=== PATIENT | female | born 1960 | race African-American/Black ===

== ENCOUNTER → 2016-10-23 | Emergency (ER) | payer MEDICARE ==
[~2016-10-23] VITALS: Ht 182.8 cm; Wt 113.4 kg
[~2016-10-23] MED LIST: 'CLONIDINE0.1 MG PO; ACETAMINOPHEN-O1 TAB PO; AMOXICILLIN500 MG PO; ANAPROX DS550 MG PO; ANTIVERT/2525 MG PO; ASPIRIN325 MG PO; ATENOLOL25 MG PO; AUGMENTIN 875 M1 TA1; AUGMENTIN 875 M1 TAB PO; BACTRIM DS 8001 TA1 PO; CARDIZEM CD240 MG PO; CARDIZEM120 MG; CARDIZEM120 MG PO; CATAFLAM50 MG PO; CATAPRES0.1 MG PO; CELEBREX100 MG PO; CIPROFLOXACIN500 MG PO; CLINDAMYCIN HC300 MG PO; CYCLOBENZAPRINE5 M3 PO; CYMBALTA20 MG PO; CYMBALTA30 MG PO; CYMBALTA60 MG; DARVOCET N 1001 TAB PO; DAYPRO600 M1 PO; DILTIAZEM; DILTIAZEM240 M1 PO; DOES NOT KNOW NAME; FIORICET 325 MG1 TAB PO; FLEXERIL10 MG PO; GABAPENTIN100 M1 PO; HYDROCODONE BIT1 T11 PO; IBUPROFEN; INHALER; KEFLEX500 MG PO; KLONOPIN0.5 MG PO; LEXAPRO20 MG PO; LEXAPRO5 M1 PO; LIDEX 0.05% CRE15 GM; LIDEX0.05% T; LISINOPRIL40 MG; LISINOPRIL40 MG PO; LOTRIMIN 1%15 GM PO; Lovenox40 MG/0.4 SC; MALOXICAM; MINIPRESS2 MG PO; MORPHINE4 MG IV; MOTRIN800 MG PO; MULTIVITAMIN FO1 CAP PO; Motrin,Rufen800 MG PO; NEURONTIN100 MG PO; NEURONTIN300 MG PO; NULYTELY PO; OXYGEN; PERCOCET; PERCOCET 325 MG1 TA2 PO; PERCOCET 325 MG1 TA5; PERCOCET 325 MG1 TA5 PO; PERCOCET 325 MG1 TA7 PO; PERCOCET 325 MG1 TAB PO; PREDNICOT20 MG PO; PRILOSEC20 MG PO; PROAIR HFA0.09 MG/AC INH; PROAIR HFA8.5 GM INH; Percocet 325 MG1 TAB PO; ROBAXIN750 MG PO; SEPTRA DS 800 M1 TAB PO; SIMVASTATIN; SIMVASTATIN40 MG PO; TORADOL10 MG PO; TRAMADOL HCL50 MG PO; TYLENOL EXTRA500 M1 PO; ULTRAM50 MG PO; VICODIN 5/500 505 MG PO; VICODIN 500 MG-1 TAB PO; VITAMIN C500 MG PO; VOLTAREN1% TP; VOLTAREN50 M1 PO; WALKER; XANAX0.5 MG PO; ZESTRIL40 MG PO; ZOCOR40 MG PO; ZOFRAN4 MG PO; ZOLOFT100 MG
[2016-10-23 08:56] LABS: BASO % 0.5 % (0.0-1.0); EOS # 0.1 10*3/uL (0.0-0.4); EOS % 1.8 % (1.0-4.0); HEMATOCRIT 43.1 % (37.0-47.0); HEMOGLOBIN 13.7 g/dl (12.0-16.0); LYMPH # 2.5 10*3/uL (1.3-4.4); LYMPH % 41.8 % (27.0-41.0); MEAN CELL VOLUME 93.1 fl (81.0-99.0); MEAN CORPUSCULAR HGB 29.6 pg (27.0-31.0); MEAN CORPUSCULAR HGB CONC 31.8 g/dl (33.0-37.0); MEAN PLATELET VOLUME 9.8 fl (9.6-12.3); MONO # 0.5 10*3/uL (0.1-1.0); MONO % 8.8 % (3.0-9.0); NEUT # 2.8 10*3/uL (2.3-7.9); NEUT % 46.9 % (47.0-73.0); PLATELET COUNT AUTOMATED 271 10*3/uL (130-400); RED BLOOD COUNT 4.63 10*6/uL (4.10-5.10); RED CELL DISTRI WIDTH 13.2 % (0-14.5)
[2016-10-23 09:05] LABS: PROTHROMBIN TIME 10.3 SECONDS (9.0-12.4)
[2016-10-23 09:12] LABS: ALBUMIN 3.8 gm/dl (3.1-4.5); ALKALINE PHOSPHATASE 103 U/L (45-117); BILIRUBIN, TOTAL 0.3 mg/dl (0.2-1.0); BUN 10 mg/dl (7-24); C-REACTIVE PROTEIN 0.39 MG/DL (0-0.3); CARBON DIOXIDE 27 mmol/L (21-32); CHLORIDE 110 mmol/L (98-107); CKMB 1.1 ng/ml (0.5-3.6); CPK 89 U/L (26-192); EST GLOM FILT AFRICAN AMERICAN > 60 ml/min; GLUCOSE 109 mg/dL (65-99); MAGNESIUM 2.2 mg/dL (1.5-2.1); POTASSIUM 4.1 mmol/L (3.5-5.1); SGOT/AST 12 IU/L (3-35); SGPT/ALT 20 U/L (12-78); SODIUM 143 mmol/L (136-145); TOTAL PROTEIN 7.6 gm/dL (6.4-8.2); TROPONIN I < 0.015 ng/ml (<0.045)
[2016-10-23 10:22] LABS: BILIRUBIN 1+ (NEGATIVE); BLOOD NEGATIVE (NEGATIVE); CLARITY SL CLOUDY (CLEAR); COLOR YELLOW (YELLOW); GLUCOSE NEGATIVE (NEGATIVE); KETONE NEGATIVE (NEGATIVE); LEUKO ESTERASE NEGATIVE (NEGATIVE); NITRITE NEGATIVE (NEGATIVE); PH 5.5 (5.0-9.0); PROTEIN 1+ (NEGATIVE); SPECIFIC GRAVITY >= 1.030 (1.005-1.030)
[2016-10-23 10:33] LABS: BACTERIA 1+; MUCOUS 3+; URINE REFLEX COMMENT NO (NO)
[2016-10-23 10:34] LABS: WBC 0-2 wbc/hpf (0-5)
[2016-10-23 12:25] VITALS: BP 126/71
== END ==
LOC: ED 08:29
PROVIDERS: Emergency Medicine
DX: G46.4 Cerebellar stroke syndrome (principal); F41.9 Anxiety disorder, unspecified; E78.5 Hyperlipidemia, unspecified; I10 Essential (primary) hypertension; Z88.6 Allergy status to analgesic agent; Z88.1 Allergy status to other antibiotic agents; Z88.8 Allergy status to other drugs, medicaments and biological substances; Z79.899 Other long term (current) drug therapy

== ENCOUNTER 2017-10-22 11:52 | Emergency (ER) | payer OTHER ==
[~2017-10-22] VITALS: Ht 187.9 cm; Wt 116.6 kg
[2017-10-22 11:52] VITALS: BP 115/69
[2017-10-22] MEDS ORDERED: Bactroban Oint22 GM T ×2 (12:14→12:17)
== END 2017-10-22 12:18 | disposition home or self-care (01) ==
LOC: ED 11:52
DX: L08.89 Other specified local infections of the skin and subcutaneous tissue (principal); E78.5 Hyperlipidemia, unspecified; F17.200 Nicotine dependence, unspecified, uncomplicated; E66.9 Obesity, unspecified; I10 Essential (primary) hypertension; G47.33 Obstructive sleep apnea (adult) (pediatric); Z98.51 Tubal ligation status; Z98.890 Other specified postprocedural states; Z79.899 Other long term (current) drug therapy; Z88.6 Allergy status to analgesic agent; Z88.1 Allergy status to other antibiotic agents; Z86.14 Personal history of Methicillin resistant Staphylococcus aureus infection

== ENCOUNTER 2017-12-04 07:55 | Emergency (ER) | payer OTHER ==
[~2017-12-04] VITALS: Wt 116.1 kg
[~2017-12-04 07:55] MED LIST changes: +Bactroban Oint22 GM T
[2017-12-04 08:00] VITALS: BP 116/77
[2017-12-04] MEDS ORDERED: DIFLUCAN150 MG PO (08:26)
[2017-12-04] MEDS ORDERED: VIBRAMYCIN100 MG PO (08:26)
[2018-01-05] MEDS ORDERED: DILTIAZEM ER240 M1 PO (13:34)
[2018-01-05] MEDS ORDERED: PROTONIX40 MG PO (13:35)
[2018-01-05] MEDS ORDERED: NEURONTIN300 MG PO (13:35)
[2018-01-05] MEDS ORDERED: ASPIRIN325 M2 PO (14:29)
[2018-01-05] MEDS ORDERED: BACLOFEN20 M1 PO (14:30)
[2018-01-05] MEDS ORDERED: SPIRIVA18 MCG PO (14:33)
[2018-01-08] MEDS ORDERED: OXYCODONE HCL5 MG PO (11:13)
[2018-01-08] MEDS ORDERED: MEPERIDINE IV (11:13)
[2018-01-08] MEDS ORDERED: OXYCONTIN10 M1 PO (11:13)
== END 2017-12-04 08:32 | disposition home or self-care (01) ==
LOC: ED 07:55
DX: Z20.2 Contact with and (suspected) exposure to infections with a predominantly sexual mode of transmission (principal); E78.5 Hyperlipidemia, unspecified; I10 Essential (primary) hypertension; Z88.6 Allergy status to analgesic agent; Z88.1 Allergy status to other antibiotic agents; Z88.8 Allergy status to other drugs, medicaments and biological substances; Z79.899 Other long term (current) drug therapy

== ENCOUNTER → 2018-01-28 | Outpatient (CLI) | payer OTHER ==
[~2018-01-28] MED LIST changes: +ASPIRIN325 M2 PO; +BACLOFEN20 M1 PO; +DIFLUCAN150 MG PO; +DILTIAZEM ER240 M1 PO; +MEPERIDINE IV; +OXYCODONE HCL5 MG PO; +OXYCONTIN10 M1 PO; +PERCOCET 10-321 EACH PO; +PERCOCET 5-3251 EACH PO; +PROTONIX40 MG PO; +SPIRIVA18 MCG PO; +VIBRAMYCIN100 MG PO
[2018-01-28 09:10] LABS: BASO # 0.1 10*3/uL (0.0-0.1); BASO % 0.8 % (0.0-1.0); EOS # 0.5 10*3/uL (0.0-0.4); EOS % 5.3 % (1.0-4.0); HEMATOCRIT 31.2 % (37.0-47.0); HEMOGLOBIN 9.3 g/dl (12.0-16.0); LYMPH # 3.4 10*3/uL (1.3-4.4); LYMPH % 33.2 % (27.0-41.0); MEAN CORPUSCULAR HGB 29.8 pg (27.0-31.0); MEAN CORPUSCULAR HGB CONC 29.8 g/dl (33.0-37.0); MEAN PLATELET VOLUME 9.7 fl (9.6-12.3); MONO # 1.2 10*3/uL (0.1-1.0); MONO % 11.4 % (3.0-9.0); NUCLEATED RED BLOOD CELL 0.1 10*3/uL (0.0-0.0); NUCLEATED RED BLOOD CELL 0.7 % (0.0-0.0); PLATELET COUNT AUTOMATED 582 10*3/uL (130-400); RED BLOOD COUNT 3.12 10*6/uL (4.10-5.10); RED CELL DISTRI WIDTH 16.4 % (0-14.5); WHITE BLOOD COUNT 10.2 10*3/uL (4.8-10.8)
[2018-01-28 09:28] LABS: ALBUMIN 3.5 gm/dl (3.1-4.5); BUN 15 mg/dl (7-24); CHLORIDE 107 mmol/L (98-107); POTASSIUM 3.7 mmol/L (3.5-5.1); SODIUM 144 mmol/L (136-145)
[2018-01-28 09:31] LABS: ALKALINE PHOSPHATASE 104 U/L (45-117); CREATININE 1.02 mg/dL (0.55-1.02); SGOT/AST 13 IU/L (3-35); SGPT/ALT 17 U/L (12-78); TOTAL PROTEIN 7.3 gm/dL (6.4-8.2)
== END | disposition home or self-care (01) ==
LOC: LAB 08:07
PROVIDERS: Physician Assistant
DX: C25.2 Malignant neoplasm of tail of pancreas (principal)

== ENCOUNTER 2018-02-11 04:38 | Emergency (ER) | payer OTHER ==
[~2018-02-11] VITALS: Ht 185.4 cm; Wt 105.2 kg
[~2018-02-11 04:38] MED LIST changes: -PERCOCET 10-321 EACH PO; -PERCOCET 5-3251 EACH PO
[2018-02-11 05:23] LABS: BASO % 0.6 % (0.0-1.0); EOS # 0.4 10*3/uL (0.0-0.4); EOS % 6.4 % (1.0-4.0); HEMATOCRIT 37.5 % (37.0-47.0); HEMOGLOBIN 11.5 g/dl (12.0-16.0); LYMPH # 2.1 10*3/uL (1.3-4.4); LYMPH % 31.2 % (27.0-41.0); MEAN CELL VOLUME 96.2 fl (81.0-99.0); MEAN CORPUSCULAR HGB 29.5 pg (27.0-31.0); MEAN CORPUSCULAR HGB CONC 30.7 g/dl (33.0-37.0); MEAN PLATELET VOLUME 9.7 fl (9.6-12.3); MONO % 14.1 % (3.0-9.0); NEUT # 3.2 10*3/uL (2.3-7.9); NEUT % 47.4 % (47.0-73.0); PLATELET COUNT AUTOMATED 472 10*3/uL (130-400); RED CELL DISTRI WIDTH 16.3 % (0-14.5); WHITE BLOOD COUNT 6.7 10*3/uL (4.8-10.8)
[2018-02-11 05:43] LABS: ALBUMIN 3.7 gm/dl (3.1-4.5); ALKALINE PHOSPHATASE 108 U/L (45-117); BUN 13 mg/dl (7-24); CHLORIDE 107 mmol/L (98-107); CREATININE 0.79 mg/dL (0.55-1.02); LIPASE 106 U/L (73-393); SGOT/AST 17 IU/L (3-35); SGPT/ALT 20 U/L (12-78); SODIUM 140 mmol/L (136-145)
[2018-02-11 06:25] VITALS: BP 122/74
[2018-02-11] MEDS ORDERED: PERCOCET 5-3251 EACH PO (06:27)
== END 2018-02-11 06:40 | disposition home or self-care (01) ==
LOC: ED 04:38
PROVIDERS: Student in an Organized Health Care Education/Training Program
DX: G89.3 Neoplasm related pain (acute) (chronic) (principal); R10.9 Unspecified abdominal pain; R11.0 Nausea; E78.5 Hyperlipidemia, unspecified; I10 Essential (primary) hypertension; I48.91 Unspecified atrial fibrillation; Z88.1 Allergy status to other antibiotic agents; Z88.6 Allergy status to analgesic agent; Z88.8 Allergy status to other drugs, medicaments and biological substances; Z79.899 Other long term (current) drug therapy

== ENCOUNTER 2018-02-19 09:49 | Emergency (ER) | payer OTHER ==
[~2018-02-19] VITALS: Ht 187.9 cm; Wt 105.2 kg
[~2018-02-19 09:49] MED LIST changes: +PERCOCET 5-3251 EACH PO
[2018-02-19 09:53] VITALS: BP 129/79
[2018-02-19] MEDS ORDERED: PERCOCET 10-321 EACH PO (10:26)
== END 2018-02-19 10:32 | disposition home or self-care (01) ==
LOC: ED 09:49
DX: R10.30 Lower abdominal pain, unspecified (principal); C25.9 Malignant neoplasm of pancreas, unspecified; I10 Essential (primary) hypertension; I48.91 Unspecified atrial fibrillation; E78.5 Hyperlipidemia, unspecified; Z88.6 Allergy status to analgesic agent; Z88.1 Allergy status to other antibiotic agents; Z88.8 Allergy status to other drugs, medicaments and biological substances; Z79.899 Other long term (current) drug therapy; Z79.82 Long term (current) use of aspirin

== ENCOUNTER 2018-02-26 03:04 | Emergency (ER) | payer OTHER ==
[~2018-02-26] VITALS: Ht 187.9 cm; Wt 104.3 kg
[~2018-02-26 03:04] MED LIST changes: +PERCOCET 10-321 EACH PO
[2018-02-26 04:03] LABS: BASO # 0.1 10*3/uL (0.0-0.1); BASO % 0.6 % (0.0-1.0); EOS # 0.3 10*3/uL (0.0-0.4); EOS % 3.2 % (1.0-4.0); HEMOGLOBIN 11.4 g/dl (12.0-16.0); LYMPH # 2.1 10*3/uL (1.3-4.4); LYMPH % 26.1 % (27.0-41.0); MEAN CORPUSCULAR HGB 29.8 pg (27.0-31.0); MEAN CORPUSCULAR HGB CONC 31.7 g/dl (33.0-37.0); MEAN PLATELET VOLUME 10.1 fl (9.6-12.3); MONO # 0.9 10*3/uL (0.1-1.0); MONO % 10.7 % (3.0-9.0); NEUT # 4.8 10*3/uL (2.3-7.9); NEUT % 59.2 % (47.0-73.0); PLATELET COUNT AUTOMATED 410 10*3/uL (130-400); RED BLOOD COUNT 3.83 10*6/uL (4.10-5.10); RED CELL DISTRI WIDTH 15.1 % (0-14.5); WHITE BLOOD COUNT 8.1 10*3/uL (4.8-10.8)
[2018-02-26 04:19] LABS: INTERNATIONAL NORM RATIO 0.9 (2.0-3.5)
[2018-02-26 04:26] LABS: BILIRUBIN NEGATIVE (NEGATIVE); BLOOD NEGATIVE (NEGATIVE); CLARITY CLEAR (CLEAR); COLOR YELLOW (YELLOW); GLUCOSE NEGATIVE (NEGATIVE); KETONE TRACE (NEGATIVE); LEUKO ESTERASE NEGATIVE (NEGATIVE); NITRITE NEGATIVE (NEGATIVE); SPECIFIC GRAVITY 1.025 (1.005-1.030); UROBILINOGEN 0.2 E.U./dl (0.2-1.0)
[2018-02-26 04:28] LABS: ALBUMIN 3.4 gm/dl (3.1-4.5); ALKALINE PHOSPHATASE 104 U/L (45-117); BUN 19 mg/dl (7-24); CHLORIDE 109 mmol/L (98-107); CREATININE 0.97 mg/dL (0.55-1.02); LIPASE 132 U/L (73-393); POTASSIUM 3.7 mmol/L (3.5-5.1); SGOT/AST 15 IU/L (3-35); SGPT/ALT 17 U/L (12-78); SODIUM 142 mmol/L (136-145); TOTAL PROTEIN 7.8 gm/dL (6.4-8.2)
[2018-02-26 04:37] LABS: BACTERIA TRACE; EPITHELIAL CELLS 25-30; WBC 0-2 wbc/hpf (0-5)
[2018-02-26] MEDS ORDERED: Percocet 325 MG1 TAB PO (05:41)
[2018-02-26 05:57] VITALS: BP 125/88
== END 2018-02-26 06:18 ==
LOC: ED 03:04
PROVIDERS: Emergency Medicine Emergency Medical Services
DX: R10.9 Unspecified abdominal pain (principal); C25.9 Malignant neoplasm of pancreas, unspecified; E78.5 Hyperlipidemia, unspecified; I10 Essential (primary) hypertension; Z88.1 Allergy status to other antibiotic agents; Z88.6 Allergy status to analgesic agent; Z88.8 Allergy status to other drugs, medicaments and biological substances; Z79.899 Other long term (current) drug therapy; Z79.82 Long term (current) use of aspirin

== ENCOUNTER 2018-03-17 09:40 | Emergency (ER) | payer OTHER ==
[~2018-03-17] VITALS: Wt 106.6 kg
[2018-03-17 09:41] VITALS: BP 129/77
== END 2018-03-17 10:40 | disposition home or self-care (01) ==
LOC: ED 09:40
DX: R51 Headache (principal); R11.0 Nausea; Z98.51 Tubal ligation status; Z79.82 Long term (current) use of aspirin; Z79.899 Other long term (current) drug therapy; Z88.8 Allergy status to other drugs, medicaments and biological substances; Z88.6 Allergy status to analgesic agent; Z88.1 Allergy status to other antibiotic agents

== ENCOUNTER 2018-04-05 05:00 | Emergency (ER) | payer OTHER ==
[~2018-04-05] VITALS: Wt 105.2 kg
[2018-04-05 05:01] VITALS: BP 144/87
== END 2018-04-05 06:01 | disposition home or self-care (01) ==
LOC: ED 05:00
DX: F41.9 Anxiety disorder, unspecified (principal); I48.91 Unspecified atrial fibrillation; E78.5 Hyperlipidemia, unspecified; I10 Essential (primary) hypertension; Z88.1 Allergy status to other antibiotic agents; Z88.6 Allergy status to analgesic agent; Z88.8 Allergy status to other drugs, medicaments and biological substances; Z79.899 Other long term (current) drug therapy; Z79.82 Long term (current) use of aspirin

== ENCOUNTER 2018-06-26 11:30 | Inpatient (IN) | payer OTHER ==
[~2018-06-26] VITALS: Ht 187.9 cm; Wt 107.1 kg
[2018-06-26] VITALS (14 sets, daily range): BP systolic 50–110; BP diastolic 0–79
--- NOTE | ~2018-06-26 | EKG ---
[place], [place] ELECTROCARDIOGRAM REPORT NAME: DEBRA KHALIL UNIT #: [id number] ROOM: [facility] DOCTOR: TIA DRAFT REPORT BIRTHDATE: [birth year] [facility] Test Date: 2018-06-26 Test Time: 12:15:45 Pat Name: DEBRA KHALIL Department: Room: [facility] Gender: F [employer]: : 1960 Requested By: RACHEL MURRAY Order Number: [id number] Reading MD: Barry Braden MD Measurements Intervals [place] Rate: 97 P: 78 AR: 144 QRS: 67 QRSD: 108 T: -14 QT: 376 QTc: 478 Interpretive Statements Sinus rhythm Anteroseptal infarct, age indeterminate Compared to ECG 01/05/2018 06:50:15 Myocardial infarct finding now present Right ventricular hypertrophy no longer present T-wave abnormality no longer present Electronically Signed On 06-28-2018 4:42:34 PST by Barry Braden MD CM:EKGRPT:ELECTROCARDIOGRAM REPORT [id number] RACHEL MURRAY EPIPHANY DRAFT REPORT RACHEL MURRAY
--- NOTE | ~2018-06-26 | O ---
[place], [place] OPERATIVE NOTE NAME: DEBRA KHALIL UNIT #: [id number] ROOM: [facility] DOCTOR: CINDI KIM DO BIRTHDATE: [birth year] DOS: 06/26/2018 PROCEDURE: Endotracheal intubation. PROCEDURE NOTE: This is a 58-year-old female currently admitted under the hospitalist service for treatment of sepsis and pneumonia. She developed worsening respiratory failure after admission to the ICU and it was decided to intubate the patient. Rapid sequence intubation was performed using succinylcholine and etomidate. A size 8.0 endotracheal tube was inserted into the trachea with direct visualization of the vocal cords. There was good color change on the CO2 detector. Breath sounds were equal bilaterally. A chest x-ray was ordered for tube placement. No complications during the procedure. CINDI KIM DO CM:OPRECORD:OPERATIVE NOTE [id number] CINDI KIM DO 06/27/18 0939 interface
[~2018-06-26 11:30] MED LIST changes: +DILTIAZEM 24HR360 MG PO; -DILTIAZEM ER240 M1 PO; -SIMVASTATIN40 MG PO; +ZOCOR20 MG PO
[2018-06-26 12:53] LABS: HEMATOCRIT 30.6 % (37.0-47.0); HEMOGLOBIN 9.3 g/dl (12.0-16.0); MEAN CELL VOLUME 104.1 fl (81.0-99.0); MEAN CORPUSCULAR HGB 31.6 pg (27.0-31.0); MEAN CORPUSCULAR HGB CONC 30.4 g/dl (33.0-37.0); NUCLEATED RED BLOOD CELL 0.4 10*3/uL (0.0-0.0); NUCLEATED RED BLOOD CELL 2.6 % (0.0-0.0); PLATELET COUNT AUTOMATED 379 10*3/uL (130-400); RED BLOOD COUNT 2.94 10*6/uL (4.10-5.10); RED CELL DISTRI WIDTH 27.1 % (0-14.5); WHITE BLOOD COUNT 13.2 10*3/uL (4.8-10.8)
--- NOTE | 2018-06-26 13:01 | NUR ---
LACTIC ACID 7.8 AN RACHEL NASH APRN NOTIFIED.
[2018-06-26 13:06] LABS: ALBUMIN 3.1 gm/dl (3.1-4.5); CREATININE 1.47 mg/dL (0.55-1.02); POTASSIUM 3.8 mmol/L (3.5-5.1); TOTAL PROTEIN 7.6 gm/dL (6.4-8.2)
[2018-06-26 13:15] LABS: TROPONIN I 0.096 ng/ml (<0.045)
--- NOTE | 2018-06-26 13:15 | NUR ---
TRIPONON 0.096 RACHEL NASH APRN NOTIFIED.
[2018-06-26 13:23] LABS: ACANTHOCYTES MANY; HOWELL-JOLLY BODIES MODERATE; PLATELET SUFFICIENCY NORMAL (NORMAL); TOTAL CELLS COUNTED 100 #CELLS
[2018-06-26 13:24] LABS: POLYCHROMASIA SLIGHT; SCHISTOCYTES MODERATE; TARGET CELLS MODERATE
[2018-06-26 13:25] LABS: SPHEROCYTES FEW
--- NOTE | 2018-06-26 13:37 | NUR ---
IV IN LEFT AC PULLED, LINE INFILTRATED
--- NOTE | 2018-06-26 13:40 | NUR ---
ATTEMPTED REPORT TO ICU NO ANSWER
--- NOTE | 2018-06-26 13:46 | NUR ---
ATTEMPTED REPORT TO ICU FOR SENCOND TIME STILL NO ANSWER
--- NOTE | 2018-06-26 13:50 | NUR ---
CALLED ICU, THEY ARE REFUSING REPORT AT THIS TIME BECAUSE RN IS AT LUNCH
--- NOTE | 2018-06-26 14:30 | NUR ---
A 58, admitted to ICCU, under the services of CINDI Guy DO with a diagnosis of ACUTE RENAL FAILURE,SEPSIS, BILATERAL PNEUMONIA. Chief complaint is ABD. PAIN AND SOB. Patient arrived via stretcher from ER. Monitor applied. Initial assessment completed. Vital signs taken and recorded. CINDI GUY DO notified of admission to the unit. Orders received. See assessment for past medical history, medications and allergies. Patient and/or family oriented to unit. [facility] ICCU visitation policy reviewed. Clothing/patient valuable form completed. ARMENTA
--- NOTE | 2018-06-26 14:45 | NUR ---
DR KIM IN TO SEE PT. MANUAL BP REMAINS 70/0. DR KIM AWARE. HE STATED TO GIVE THE 3 LITERS OF IVF BOLUS AND IF PT'S BP DOES NOT IMPROVE THAN WE WILL START PRESSORS. I INFORMED HIM HTE CT SCAN HAS NOT BEEN TAKEN YET DUE TO PT'S INSTABILITY. PT REMAINS AWAKE AND ALERT. PT STILL C/O ABD. PAIN. PT EDUCATED THAT WE ARE UNABLE TO GIVE HER PAIN MED AT THIS TIME DUE TO HER CRITICALLY LOW BLOOD PRESSURE. WILL CONTINUE TO MONITOR PT.
[2018-06-26] MEDS ORDERED: ROXICODONE15 MG PO (14:56)
[2018-06-26] MEDS ORDERED: MS CONTIN60 MG PO (14:59)
[2018-06-26] MEDS ORDERED: PROCHLORPERAZIN10 MG PO (15:00)
--- NOTE | 2018-06-26 15:00 | NUR ---
PT REQUESTING PAIN MED. DR PUENTE EDUCATED PT AGAIN ON OUR INABILITY TO GIVE HER PAIN MED. DUE TO HER CRITICALLY LOW BP.
[2018-06-26] MEDS ORDERED: CLONIDINE HCL0.1 MG PO (15:01)
[2018-06-26] MEDS ORDERED: LEXAPRO20 MG PO (15:02)
--- NOTE | 2018-06-26 15:05 | NUR ---
[facility] CALLED ABOUT MEDS - UPDATED IN MED CLAIM HISTORY
--- NOTE | 2018-06-26 15:30 | NUR ---
MANUAL BLOOD PRESSURE 50/0 WITH DOPPLER. ON 50% VENTURI. AWAKE AND ALERT AT THIS TIME. AND AWARE. DECISION MADE TO INTUBATE PATIENT AND START LEVOPHED GTT.
--- NOTE | 2018-06-26 15:35 | NUR ---
LEVOPHED GTT STARTED AT 12MIC
--- NOTE | 2018-06-26 15:55 | NUR ---
PATIENT INTUBATED WITH #8 ETT. 26 LIP. SEDATED WITH ETOMADATE AND SUCCS. # 16 LLANOS INSERTED WITH SCANT URINE RETURN. #16 OGT INSERTED. DIPRIVAN GTT STARTED AND MEDICATED WITH VERSED 5MG IV FOR FURTHER SEDATION. BLOOD PRESSURE 58/0 WITH DOPPLER.
--- NOTE | 2018-06-26 16:30 | NUR ---
BLOOD PRESSURE 60/0 WITH DOPPLER. LEVOPHED INCREASED TO 15MIC. DIPRIVAN DECREASED TO 40 SANJEEV.
--- NOTE | 2018-06-26 16:45 | NUR ---
RIGHT FEMEROL MLC INSERTED BY .
[2018-06-26 17:02] LABS: ABG O2 SATURATION 25.7 % (95-97); ARTERIAL BLOOD GAS PCO2 68.3 mmHg (35-45)
[2018-06-26 17:03] LABS: ABG BASE EXCESS -9.6 mmol/L (-2.0-2.0)
[2018-06-26 17:04] LABS: ARTERIAL BLOOD GAS PH 7.09 (7.35-7.45); ARTERIAL BLOOD GAS PO2 25.6 mmHg (80-90)
--- NOTE | 2018-06-26 17:12 | NUR ---
BLOOD PRESSURE 66/0 WITH DOPPLER. LEVOPHED INCREASED TO 20MIC AND DIPRIVAN DECREASED TO 30MIC.
--- NOTE | 2018-06-26 17:30 | NUR ---
DOPAMINE STARTED AT 10MIC.
[2018-06-26 17:40] LABS: ABG HCO3 18.1 mmol/l (22-26); ABG O2 SATURATION 92.9 % (95-97); ARTERIAL BLOOD GAS PCO2 50.7 mmHg (35-45)
[2018-06-26 17:41] LABS: ABG BASE EXCESS -9.3 mmol/L (-2.0-2.0); ARTERIAL BLOOD GAS PH 7.179 (7.35-7.45)
[2018-06-26 18:02] LABS: INTERNATIONAL NORM RATIO 1.3 (2.0-3.5)
--- NOTE | 2018-06-26 18:35 | NUR ---
REPORT GIVEN TO MERLINE AT [facility].
--- NOTE | 2018-06-26 19:00 | NUR ---
PATIENT TRANSPORTED TO [facility] VIA [facility]. TRANSFER PACKET SENT WITH CREW. 1 RING AND 1 BRACELET SENT WITH PATIENT. ALL OTHER PERSONAL BELONGINGS AND PURSE IN NURSING OFFICE LOCK BOX PER DAUGHTER (LEYLA WARD)REQUEST. SHE STATED THAT SHE WILL COME PICK THEM UP.
== END 2018-06-26 19:00 | disposition short-term general hospital (02) | DRG 871 ==
LOC: ED 11:30 → ICCU 13:25 → EDHOLD 13:25 → ICCU 13:35
PROVIDERS: Internal Medicine; Internal Medicine Nephrology; Nurse Practitioner Family; ADMIT Emergency Medicine
DX: A41.9 Sepsis, unspecified organism (principal); J18.9 Pneumonia, unspecified organism; J96.21 Acute and chronic respiratory failure with hypoxia; J96.22 Acute and chronic respiratory failure with hypercapnia; R65.21 Severe sepsis with septic shock; N17.0 Acute kidney failure with tubular necrosis; E87.2 Acidosis; C25.9 Malignant neoplasm of pancreas, unspecified; Z96.653 Presence of artificial knee joint, bilateral; Z90.81 Acquired absence of spleen; F17.210 Nicotine dependence, cigarettes, uncomplicated; Z82.49 Family history of ischemic heart disease and other diseases of the circulatory system; Z80.8 Family history of malignant neoplasm of other organs or systems; E78.5 Hyperlipidemia, unspecified; E11.9 Type 2 diabetes mellitus without complications; J44.9 Chronic obstructive pulmonary disease, unspecified; K21.9 Gastro-esophageal reflux disease without esophagitis; D53.9 Nutritional anemia, unspecified; F41.9 Anxiety disorder, unspecified; I48.91 Unspecified atrial fibrillation; G89.29 Other chronic pain; K57.90 Diverticulosis of intestine, part unspecified, without perforation or abscess without bleeding; Z87.820 Personal history of traumatic brain injury; E66.9 Obesity, unspecified; G47.33 Obstructive sleep apnea (adult) (pediatric); Z99.81 Dependence on supplemental oxygen; Z98.51 Tubal ligation status; Z90.710 Acquired absence of both cervix and uterus; Z95.5 Presence of coronary angioplasty implant and graft; Z80.9 Family history of malignant neoplasm, unspecified; Z88.1 Allergy status to other antibiotic agents; Z79.899 Other long term (current) drug therapy; Z68.30 Body mass index [BMI] 30.0-30.9, adult; Z79.4 Long term (current) use of insulin